=== PATIENT | male | born 1980 | race Caucasian/White ===

== ENCOUNTER 2016-09-06 22:10 | Emergency (ER) | payer MEDICAID ==
--- NOTE | 2016-09-06 22:45 | Emergency Department Record ---
History of Present Illness - General Chief complaint: Lower Extremity Pain Stated complaint: LT FOOT INJURY Time Seen by Provider: 09/06/16 22:36 Source: Patient Mode of Arrival: Ambulatory Limitations: No limitations - History of Present Illness Initial comments: 36 yo male was playing basketball and felt a sharp pain in his left posterior ankle area. He fell to the ground and was unable to bear weight after that. He flet like he was kicked but no one was there. 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 MD Complaint: Extremity pain, Joint pain Onset/Timin -: Minutes(s) Location: Left, Ankle, Foot, Other History of Same: No Radiation: None Severity scale (1-10): 7 Consistency: Intermittent Improves with: Nothing Worsens with: Nothing Associated Symptoms: Denies other symptoms - Related Data Previous Rx's Medication Instructions Recorded Hydrocodone/Acetaminophen [[place] 0.5 - 1 tab PO TID PRN #12 tab 09/06/16 5mg/325mg] Allergies Allergy/AdvReac Type Severity Reaction Status Date / Time No Known Drug Allergies Allergy Unverified 06/16/15 08:05 Travel Screening - Travel/Exposure Within Last 30 Days Have you traveled within the last 30 days?: No Review of Systems Constitutional: Denies: Chills, Fever, Weakness Eyes: Denies: Eye discharge ENT: Denies: Congestion, Throat pain Respiratory: Denies: Cough Cardiovascular: Denies: Chest pain, Palpitations, Syncope Endocrine: Denies: Fatigue Gastrointestinal: Denies: Abdominal pain, Diarrhea, Nausea, Vomiting Genitourinary: Denies: Hematuria Musculoskeletal: Reports: Arthralgia, Joint swelling, Myalgia. Denies: Back pain, Neck pain Skin: Denies: Bruising, Change in color, Rash Neurological: Denies: Headache, Numbness, Vertigo, Weakness Psychiatric: Denies: Anxiety Hematological/Lymphatic: Denies: Easy bleeding, Easy bruising, Swollen glands Past Medical History - SOCIAL HISTORY Smoking Status: Never smoker - RESPIRATORY Hx Respiratory Disorders: No - CARDIOVASCULAR Hx Cardio Disorders: No Comment:: heart murmur - NEURO Hx Neuro Disorders: No - GI Hx GI Disorders: No - Hx Genitourinary Disorders: No - ENDOCRINE Hx Endocrine Disorders: No - MUSCULOSKELETAL Hx Musculoskeletal Disorders: No - PSYCH Hx Psych Problems: No - HEMATOLOGY/ONCOLOGY Hx Hematology/Oncology Disorders: No Family Medical History Hx Diabetes: Father, Grandparents Physical Exam - General General Appearance: Alert, Oriented x3, Cooperative, No acute distress Limitations: No limitations - Head Head exam: Atraumatic, Normal inspection - Eye Eye exam: Normal appearance, PERRL - ENT ENT exam: Normal exam Ear exam: Normal external inspection Nasal Exam: Normal inspection Mouth exam: Normal external inspection - Neck Neck exam: Normal inspection - Cardiovascular Cardiovascular Exam: Regular rate, Normal rhythm, Normal heart sounds Peripheral Pulses: 2+: Dorsalis Pedis (L) - Rectal Rectal exam: Deferred - exam: Deferred - Extremities Extremities exam: Calf tenderness, Normal capillary refill, Tenderness ( achilles tendon area deficit noted with pain, likely tear). negative: Normal inspection, Full ROM, Joint swelling - Back Back exam: Reports: Normal inspection, Full ROM. Denies: Muscle spasm, Rash noted, Tenderness - Neurological Neurological exam: Alert, Normal gait, Oriented X3 - Psychiatric Psychiatric exam: Normal affect, Normal mood. negative: Agitated, Anxious - Skin Skin exam: Dry, Intact, Normal color, Warm Course Vital Signs 09/06/16 22:30 Temperature 98.2 F Pulse Rate [ 100 H Pulse Ox Probe] Respiratory 24 Rate Blood Pressure 106/69 [Left Arm] Pulse Ox 97 - Reevaluation(s) Reevaluation #1: 09/06/16 23:38The clinical examination is consistent with Achilles rupture His XR was read as negative He was splinted in plantar flexion He was referred to Dr Bueno of orthopedics Crutches provided The splint is in good position and the patient reports comfort in the splint Disposition Disposition: Discharge Clinical Impression: Achilles rupture, left Disposition: Home, Self-Care Condition: (1) Good Instructions: Achilles Tendon Rupture (ED) Additional Instructions: Use the crutches at all times Call Dr Bueno's office tomorrow for close follow up Return if you have any pain or concerns about the splint Prescriptions: Hydrocodone/Acetaminophen [[place] 5mg/325mg] 0.5 - 1 tab PO TID PRN #12 tab PRN Reason: Pain - General Referrals: CHIDI BUENO [DOCTOR OF OSTEOPATH] - [facility] [Provider Group] Forms: Patient Portal Access Time of Disposition: 23:40
== END 2016-09-06 23:50 | disposition home or self-care (01) ==
LOC: ER 22:10
DX: S86.012A Strain of left Achilles tendon, initial encounter (principal); X50.9XXA Other and unspecified overexertion or strenuous movements or postures, initial encounter; Y93.67 Activity, basketball
CPT/HCPCS: 99283

== ENCOUNTER 2016-09-12 08:26 | Day surgery (SDC) | payer MEDICAID ==
[~2016-09-12 08:26] MED LIST: ACETAMINOPHEN 1000MG/100 ML PREMIX IV ONE; CEFAZOLIN 2 Gram 50 ML IVPB ONE
[2016-09-12] MEDS ORDERED: *PACU ONLY* KETAMINE HCL 10 MG/ML (20ML) VIAL IV ONE (14:00)
[2016-09-12] MEDS ORDERED: OXYCODONE HCL/APAP 5MG/325MG TABLET PO ONE (14:00)
[2016-09-12] MEDS ORDERED: IBUPROFEN 400 MG TABLET PO ONE (14:00)
[2016-09-12] MEDS ORDERED: PROPOFOL 10 MG/ML VIAL IV ONE (14:00)
[2016-09-12] MEDS ORDERED: LIDOCAINE 2% MDV (20MG/ML) 20ML VIAL IV ONE (14:00)
[2016-09-12] MEDS ORDERED: FENTANYL PF 100MCG/2ML VIAL IV ONE (14:00)
[2016-09-12] MEDS ORDERED: MIDAZOLAM HCL 2MG/2ML VIAL IV ONE (14:00)
--- NOTE | 2016-09-13 10:35 | Operative Note ---
DATE OF SURGERY: 09/12/2016 Surgeon: Alexander Azevedo DO PREOPERATIVE DIAGNOSIS: Rupture of the left Achilles tendon. POSTOPERATIVE DIAGNOSIS: Rupture of the left Achilles tendon. OPERATION: Open repair of left Achilles tendon. PROCEDURE: This 36-year-old male was taken to the operating room and placed in the supine position on the operating room table. After spinal anesthesia was induced, he was then placed in the prone position on the operating room table. The patient was well bolstered and padded. The knees slightly flexed and tourniquet had been placed around the left proximal thigh. The left lower extremity was prepped with Hibiclens and draped in the usual sterile fashion. It was exsanguinated and the tourniquet inflated to 300 mmHg. The rupture of the Achilles tendon was easily identified and a longitudinal incision was made in the posterior aspect of the leg overlying the Achilles. Dissection was carried down through the skin and subcutaneous tissue. Hemostasis obtained with the electrocautery. The paratenon was still intact, and this was incised to expose the ruptured ends of the tendon. There was significant fraying at both ends both proximal and distally, and these were debrided to relatively healthy appearing tendon. We then used a [place] type stitch to anchor the #2 fiber wire into the proximal fragment and subsequently into the distal fragment with the 2 ends of the suture exiting the end of the tear. A corresponding stitch was placed in the distal fragment in a similar type fashion. We then were able to plantar flex the ankle and were able to easily bring the 2 ends end-to-end in end-to-end approximation. Once this had been accomplished, the sutures were tied and an additional supporting 2-0 Vicryl was used as additional support to hold the ends of the tear together. The wound was irrigated with lactated Ringers solution. The paratenon closed with 4-0 Vicryl, subcutaneous tissue closed with the same suture, and the skin closed with 3-0 nylon suture. Sterile dressings were applied with plaster splint with the foot in slight equinus. The patient was then awakened and taken to the recovery room in satisfactory condition. GROSS PATHOLOGY: This patient demonstrated a complete disruption of the Achilles tendon with the plantaris still being intact. CC: MD LADAN Isidro
== END 2016-09-12 14:47 | disposition home or self-care (01) ==
LOC: SUR 08:26
PROVIDERS: ATTEND Orthopaedic Surgery
DX: S86.012A Strain of left Achilles tendon, initial encounter (principal)
CPT/HCPCS: 27650; 01472; J3010; J0690